=== PATIENT | female | born 1975 | race Caucasian/White ===

== ENCOUNTER 2019-07-01 19:32 | Emergency (ER) | payer OTHER ==
[~2019-07-01] VITALS: Ht 165.1 cm; Wt 68.0 kg
[2019-07-01 19:45] VITALS: BP_SYST 117
--- NOTE | 2019-07-01 19:45 | NUR ---
Pt ambulatory to bed 3 for evaluation
--- NOTE | 2019-07-01 19:50 | NUR ---
Patient AOx4, ambulatory, presents to ER with complaint of right-sided migraine headache 05/25 since 0200 today. Patient states hx of migraines and medicated with Imitrex and Topiramate but have been ineffective. Patient also states episodes of nausea. No other symptoms or complaints.
--- NOTE | 2019-07-01 20:33 | NUR ---
ER MD Berry at bedside for medical evaluation.
[2019-07-01] MEDS ORDERED: NACL 0.9% 1,000 ML IV ONE (20:45)
[2019-07-01] MEDS ORDERED: METOCLOPRAMIDE HCL 10 MG/2 ML VIAL IVP ONE (20:45)
[2019-07-01] MEDS ORDERED: DIPHENHYDRAMINE INJ 50 MG/ML VIAL IVP ONE (20:45)
[2019-07-01] MEDS ORDERED: DEXAMETHASONE SOD PHOSPHATE 10 MG/ML VIAL IVP ONE (20:45)
[2019-07-01] MEDS ORDERED: KETOROLAC TROMETHAMINE 30 MG VIAL IVP ONE (20:45)
--- NOTE | 2019-07-01 21:10 | NUR ---
# 20 gauge angiocath placed to RAC. Use of asceptic technique. Opsite placed over site. Blood return noted. Flushed with 10 cc of normal saline. No evidence of infiltration noted. Patient tolerated well.
--- NOTE | 2019-07-01 21:40 | NUR ---
No adverse reactions noted after medication administration. Will continue to monitor.
[2019-07-01 23:08] VITALS: BP_SYST 126
--- NOTE | 2019-07-01 23:08 | NUR ---
Patient given written and verbal discharge instructions and verbalizes understanding. ER MD discussed with patient the results and treatment provided. Patient in stable condition. ID arm band removed. IV catheter removed intact and dressing applied, no active bleeding. No Rx given. Patient educated on pain management and to follow up with PMD. Pain Scale 0/10. Opportunity for questions provided and answered.
== END 2019-07-01 23:08 | disposition home or self-care (01) ==
LOC: SED 19:32
DX: G43.909 Migraine, unspecified, not intractable, without status migrainosus (principal); Z88.1 Allergy status to other antibiotic agents; Z88.0 Allergy status to penicillin
CPT/HCPCS: 81025; 96361; 96374; 96375; 99283; J1100; J1200; J1885; J2765; J7030

== ENCOUNTER 2024-06-24 17:49 | Emergency (ER) | payer OTHER ==
[~2024-06-24] VITALS: Ht 165.1 cm; Wt 67.1 kg
[2024-06-24 17:57] VITALS: BP_SYST 122; PULSE 75; RESP 16; TEMP 97.5; O2SAT 99
[2024-06-24 19:13] LABS: BILIRUBIN,URINE NEGATIVE (NEGATIVE); BLOOD, URINE 1+ (NEGATIVE); CLARITY/URINE SL CLOUDY (CLEAR); COLOR,URINE YELLOW (YELLOW); GLUCOSE,URINE NEGATIVE (NEGATIVE); KETONES,URINE 2+ (NEGATIVE); LEUKOCYTE ESTERASE ,URINE 2+ (NEGATIVE); NITRITE, URINE NEGATIVE (NEGATIVE); PH,URINE 6.5 (5.0-8.0); PROTEIN URINE NEGATIVE (NEGATIVE); UROBILINOGEN,URINE 0.2 (0.2-1.0)
[2024-06-24 19:34] LABS: BACTERIA,URINE MODERATE /HPF (None Seen)
[2024-06-24 19:35] LABS: MUCUS,URINE 2+ /LPF (None Seen); URINE AMORPHOUS URATE 1+ /HPF (None Seen)
[2024-06-24] MEDS: NACL 0.9% 1,000 ML IV ONE (19:57)
[2024-06-24] MEDS: METOCLOPRAMIDE HCL 10 MG/2 ML VIAL IVP ONE (19:58)
[2024-06-24] MEDS: KETOROLAC TROMETHAMINE 30 MG VIAL IVP ONE (19:58)
[2024-06-24] MEDS ORDERED: cefTRIAXone 1 GM VIAL ONE (20:09)
[2024-06-24] MEDS: cefTRIAXone 1 GM in D5W 50 ML IV ONE (20:10)
[2024-06-24] MEDS ORDERED: NITR-85 PO (20:56)
[2024-06-24] MEDS ORDERED: NAPR-1172 PO (20:56)
[2024-06-24 21:05] VITALS: BP_SYST 120; PULSE 74; RESP 18; TEMP 97.5; O2SAT 98
== END 2024-06-24 21:05 | disposition home or self-care (01) ==
LOC: SED 17:49
DX: G43.909 Migraine, unspecified, not intractable, without status migrainosus (principal); N39.0 Urinary tract infection, site not specified; R11.2 Nausea with vomiting, unspecified; Z90.89 Acquired absence of other organs; Z98.890 Other specified postprocedural states; Z88.0 Allergy status to penicillin; Z88.1 Allergy status to other antibiotic agents
CPT/HCPCS: 99284; 96365; 96375; 96361; 81001; 87040; 87086; 36415; J0696; J1885; J2765; J7030; 81000; 81015